=== PATIENT | female | born 1960 | race Caucasian/White ===

== ENCOUNTER 2018-02-04 08:23 | Emergency (ER) | payer BC ==
--- NOTE | 2018-02-04 09:20 | ED ---
HPI Chest Pain - HPI Summary HPI Summary: This is dianne Islas documenting for attending Dr. Marty Mccormick MD. This patient is a 57 year old F presenting to [facility] with a chief complaint of intermittent, tight CP radiating to her back since the last few days. The patient rates the pain 3/10 in severity. Symptoms alleviated by baby aspirin. Patient reports nausea and LE edema. Patient denies SOB and difficulty swallowing. Pt reports that no specific action makes her symptoms start. Last night the pt took 2 Prilosec and several glasses of water. Pt wanted to wait through the night to see if symptoms persisted before coming to the ED. Pt was driving for a long time yesterday and put her feet up for 30 minutes before bed. PMHX GERD and HTN (controlled). No SHX tobacco use. FHx CVA, SI, and EtOH abuse. - History of Current Complaint Chief Complaint: EDChestWallPain Time Seen by Provider: 02/04/18 08:38 Hx Obtained From: Patient Onset/Duration: Started Days Ago Timing: Intermittent Initial Severity: Moderate Current Severity: Mild Pain Intensity: 3 Pain Scale Used: 0-10 Numeric Chest Pain Location: Diffuse Chest Pain Radiates: Yes Chest Pain Radiates To:: Back Character: Tightness Alleviating Factor(s): Other: - baby aspirin Associated Signs and Symptoms: Positive: Chest Pain, Nausea, Edema - LE. Negative: Shortness of Breath - Allergy/Home Medications Allergies/Adverse Reactions: Allergies Allergy/AdvReac Type Severity Reaction Status Date / Time cefazolin [From [facility]] Allergy Dry Eyes Verified 02/04/18 08:32 Home Medications: Home Medications Atenolol 25 mg PO BEDTIME 02/04/18 [History Confirmed 02/04/18] Omeprazole CAP* [Prilosec CAP* 20 MG] 20 mg PO BEDTIME 02/04/18 [History Confirmed 02/04/18] Ubidecarenone/Vitamin E [Co Q-10 50 mg Softgel] 2 each PO DAILY 02/04/18 [ History Confirmed 02/04/18] PMH/Surg Hx/FS Hx/Imm Hx Cardiovascular History: Reports: Hx Hypertension GI History: Reports: Hx Gastroesophageal Reflux Disease - Immunization History Immunizations Up to Date: Yes Infectious Disease History: No Infectious Disease History: Denies: Traveled Outside the [place] in Last 30 Days - Family History Known Family History: Positive: Other - EtOH abuse, SI, CVA - Social History Alcohol Use: Occasionally Alcohol Amount: 2-3 glasses wine/week Substance Use Type: Reports: None Smoking Status (MU): Never Smoked Tobacco Review of Systems Negative: Sore Throat Positive: Chest Pain Negative: Shortness Of Breath Positive: Nausea Positive: Edema - LE All Other Systems Reviewed And Are Negative: Yes Physical Exam - Summary Physical Exam Summary: Appearance: The patient is well-nourished in no acute distress and in no acute pain. Skin: The skin is warm and dry and skin color reflects adequate perfusion. HEENT: The head is normocephalic and atraumatic. The pupils are equal and reactive. The conjunctivae are clear and without drainage. Nares are patent and without drainage. Mouth reveals moist mucous membranes and the throat is without erythema and exudate. The external ears are intact. The ear canals are patent and without drainage. The tympanic membranes are intact. Neck: The neck is supple with full range of motion and non-tender. There are no carotid bruits. There is no neck vein distension. Respiratory: Chest is non-tender. Lungs are clear to auscultation and breath sounds are symmetrical and equal. Cardiovascular: Heart is regular rate and rhythm. There is no murmur or rub auscultated. Pulses are symmetrical and equal. Abdomen: The abdomen is soft and non-tender. There are normal bowel sounds heard in all four quadrants and there is no organomegaly palpated. Musculoskeletal: There is no back tenderness noted. Extremities are non-tender with full range of motion. There is good capillary refill. There is no calf tenderness elicited. Neurological: Patient is alert and oriented to person, place and time. The patient has symmetrical motor strength in all four extremities. Cranial nerves are grossly intact. Deep tendon reflexes are symmetrical and equal in all four extremities. Psychiatric: The patient has an appropriate affect and does not exhibit any anxiety or depression. Triage Information Reviewed: Yes Vital Signs On Initial Exam: Initial Vitals Temp Pulse Resp BP Pulse Ox 97.4 F 52 16 124/71 100 02/04/18 08:29 02/04/18 08:29 02/04/18 08:29 02/04/18 08:29 02/04/18 08:29 Vital Signs Reviewed: Yes Diagnostics - Vital Signs Vital Signs Temp Pulse Resp BP Pulse Ox 02/04/18 08:29 97.4 F 52 16 124/71 100 - Laboratory Result Diagrams: 02/04/18 09:15 02/04/18 09:15 Lab Statement: Any lab studies that have been ordered have been reviewed, and results considered in the medical decision making process. - Radiology CXR Radiology Interpretation Completed By: Radiologist - No radiographic evidence of acute cardiopulmonary disease. ED Physician reviewed this report - EKG 8:36 Cardiac Rate: Bradycardia EKG Rhythm: Sinus Bradycardia - 54 bpm Ectopy: None Chest Pain Course/Dx - Diagnoses Provider Diagnoses: Chest pain Discharge - Sign-Out/Discharge Documenting (check all that apply): Patient Departure - Discharge - Discharge Plan Condition: Stable Disposition: HOME Patient Education Materials: Chest Pain (ED) Referrals: Anshu DUNCAN,Clive Valle [Medical Doctor] - 3 Days Additional Instructions: RETURN TO THE EMERGENCY DEPARTMENT FOR CHANGING OR WORSENING SYMPTOMS Follow up with your doctor within 3 days
[2018-02-04 09:28] LABS: ABS Basophils 0.1 10^3/ul (0-0.2); ABS Eosinophils 0.1 10^3/ul (0-0.6); ABS Lymphocytes 2.8 10^3/ul (1.0-4.8); ABS Monocytes 0.6 10^3/ul (0-0.8); ABS Nucleated RBC 0 10^3/ul; Eosinophil % 1.8 % (0-6); Hematocrit 42 % (35-47); Hemoglobin 14.9 g/dl (12.0-16.0); Lymphocyte % 42.4 % (25-47); Mean Corpuscular HGB Conc 35 g/dl (31-36); Mean Corpuscular Hemoglobin 32 pg (27-31); Mean Corpuscular Volume 91 fL (80-97); Mean Platelet Volume 9.1 um3 (7.4-10.4); Nucleated Red Blood Cells % 0.3; Platelet Count 224 10^3/ul (150-450); Red Blood Count 4.61 10^6/ul (4.00-5.40); Red Cell Distribution Width 13 % (10.5-15); White Blood Count 6.6 10^3/ul (3.5-10.8)
--- NOTE | 2018-02-04 09:28 | RAD ---
INDICATION: Chest pain COMPARISON: None TECHNIQUE: PA and lateral views of the chest were obtained. FINDINGS: The heart and mediastinum are normal in size and contour. The lungs are grossly clear. There is no evidence of large pleural effusion. Visualized bones are normal for the patient's age. There is no radiographic evidence of free air beneath the diaphragm IMPRESSION: No radiographic evidence of acute cardiopulmonary disease.
[2018-02-04 09:54] LABS: EGFR Non-African American 69.4 (>60)
[2018-02-04 12:07] VITALS: BP 118/68
== END 2018-02-04 12:07 | disposition home or self-care (01) ==
LOC: ED 08:23
DX: R07.89 Other chest pain (principal); R11.0 Nausea; R60.0 Localized edema; R00.1 Bradycardia, unspecified; I10 Essential (primary) hypertension; K21.9 Gastro-esophageal reflux disease without esophagitis; Z88.1 Allergy status to other antibiotic agents
CPT/HCPCS: 36415; 71046; 80053; 83605; 84484; 85025; 85379; 93005; 99283

== ENCOUNTER 2019-07-04 16:07 | Emergency (ER) | payer BC ==
--- NOTE | 2019-07-04 16:25 | ED ---
Palpitations / Dysrhythmia - HPI Summary HPI Summary: This pt is a 58 y/o female presenting to [facility] c/o palpitations today. 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 She notes associated symptoms of diaphoresis, dizziness, chest pressure, discomfort behind shoulder blades, weird sensation down left neck described as tightness. The CP/pressure, neck discomfort has resolved. Pt states she also felt "overwhelmed" and it was hard to breathe ( also improved). Denies nausea or vomiting. Pt reports feeling palpitations in the past, usually not lasting long and resolving on its own, last episode was "months ago." PMHx: HTN (for which she takes Atenolol at night), and recently diagnosed DM ( for which she takes Metformin). - History of Current Complaint Chief Complaint: EDDysrhythmPalp Time Seen by Provider: 07/04/19 16:19 Hx Obtained From: Patient Onset/Duration: Sudden Onset, Still Present Timing: Constant Severity Initially: Moderate Character: Fast, Irregular Aggravating: Nothing Alleviating: Nothing Associated Signs & Symptoms: Dizzy, Chest Pain, Shortness of Breath, Diaphoresis - Allergy/Home Medications Allergies/Adverse Reactions: Allergies Allergy/AdvReac Type Severity Reaction Status Date / Time cefazolin [From [facility]] Allergy Dry Eyes Verified 07/04/19 16:11 PMH/Surg Hx/FS Hx/Imm Hx Endocrine/Hematology History: Reports: Hx Diabetes Cardiovascular History: Reports: Hx Hypertension GI History: Reports: Hx Gastroesophageal Reflux Disease Infectious Disease History: No Infectious Disease History: Denies: Traveled Outside the [place] in Last 30 Days - Family History Known Family History: Positive: Other - EtOH abuse, SI, CVA Negative: Cardiac Disease - Social History Alcohol Use: Occasionally Alcohol Amount: 2-3 glasses wine/week Substance Use Type: Reports: None Smoking Status (MU): Never Smoked Tobacco Review of Systems Positive: Skin Diaphoresis. Negative: Fever Positive: Palpitations, Chest Pain Positive: Shortness Of Breath Negative: Vomiting, Nausea Musculoskeletal: Other - POSITIVE: left neck tightness, shoulder blade discomfort Neurological: Other - POSITIVE: dizziness All Other Systems Reviewed And Are Negative: Yes Physical Exam - Summary Physical Exam Summary: Constitutional: Well-developed, Well-nourished, Alert. (-) Distressed Skin: Warm, Dry HENT: Normocephalic; Atraumatic Eyes: Conjunctiva normal Neck: Musculoskeletal ROM normal neck. (-) JVD, (-) Stridor Cardio: Irregularly irregular rhythm and tachycardic rate, Heart sounds normal; Intact distal pulses; Radial pulses are 2+ and symmetric. (-) Murmur Pulmonary/Chest wall: Effort normal. (-) Respiratory distress, (-) Wheezes, (-) Rales Abd: Soft, (-) tenderness, (-) Distension, (-) Guarding, (-) Rebound Musculoskeletal: (-) Edema Lymph: (-) Cervical adenopathy Neuro: Alert, Oriented x3 Psych: Mood and affect Normal Triage Information Reviewed: Yes Vital Signs On Initial Exam: Initial Vitals Temp Pulse Resp BP Pulse Ox 96.7 F 97 16 114/87 97 07/04/19 16:09 07/04/19 16:09 07/04/19 16:09 07/04/19 16:09 07/04/19 16:09 Vital Signs Reviewed: Yes Procedures - Sedation Patient Received Moderate/Deep Sedation with Procedure: No Diagnostics - Vital Signs Vital Signs Temp Pulse Resp BP Pulse Ox 07/04/19 16:09 96.7 F 97 16 114/87 97 - Laboratory Result Diagrams: 07/04/19 16:36 07/04/19 16:36 Lab Statement: Any lab studies that have been ordered have been reviewed, and results considered in the medical decision making process. - EKG 16:15 Cardiac Rate: Tachycardia - at 151 bpm EKG Rhythm: Atrial Fibrillation Summary of EKG Findings: EKG at 1615 shows afib at 151 bpm. No prior hx of afib. 1821 Cardiac Rate: NL - at 73 bpm EKG Rhythm: Sinus Rhythm Summary of EKG Findings: EKG at 1821 shows sinus rhythm at a rate of 73 bpm. T wave inversion in lead III. Re-Evaluation - Re-Evaluation First Eval Re-Evaluation Time: 16:57 Comment: Heart rate in the 150s. Second Eval Re-Evaluation Time: 17:52 Change: Improved Comment: Pt is in sinus rhythm at a rate of 75 bpm. Third Eval Re-Evaluation Time: 18:29 Comment: Patient given eliquis and metoprolol 50 ER to go, explained followup plan Course/Dx - Course Course Of Treatment: 58-year-old female the history of hypertension presents with palpitations and lightheadedness found to be in A. fib with RVR. Patient given metoprolol 5 mg IV with heart rate down to the 120s from 150s. Given oral metoprolol. Check labs including electrolytes, TSH. Trop negative. Lungs CTAB, easy WOB on RA. CHADSVASC score 2 (female, HTN). Will start eliquis - Diagnoses Provider Diagnoses: Atrial fibrillation Discharge ED - Sign-Out/Discharge Documenting (check all that apply): Patient Departure - Discharge home - Discharge Plan Condition: Stable Disposition: HOME Prescriptions: Apixaban* [Eliquis*] 5 mg PO BID 30 Days #60 tab Metoprolol Succinate XL TAB* [Toprol XL TAB*] 50 mg PO DAILY 30 Days #30 tab.xl Patient Education Materials: A-fib (Atrial Fibrillation) (ED) Referrals: Grover Fink MD [Medical Doctor] - [facility] [Outside] Additional Instructions: You were seen in the emergency department for elevated heart rate. You have atrial fibrillation. Please take metoprolol daily. Please take eliquis twice a day. 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 It was a pleasure taking care of you today. - Billing Disposition and Condition Condition: STABLE Disposition: Home - Attestation Statements Document Initiated by James: Yes Documenting Scribe: Makenna Putnam Provider For Whom James is Documenting (Include Credential): Suzanne Montes MD Scribe Attestation: Makenna Francis, scribed for Suzanne Montes MD on 07/05/19 at 0658. Scribe Documentation Reviewed: Yes Provider Attestation: The documentation as recorded by the Makenna dean accurately reflects the service I personally performed and the decisions made by , Suzanne Montes MD Status of Scribe Document: Viewed
[2019-07-04] MEDS ORDERED: NS 0.9% 1000 ML** 1,000 ML IV ONE (16:29)
[2019-07-04] MEDS: Metoprolol Tartrate IV* 1 MG/ML 5 ML VIAL IV PRN ×3 (16:38→16:51)
[2019-07-04 16:52] LABS: ABS Basophils 0.1 10^3/ul (0-0.2); ABS Eosinophils 0.1 10^3/ul (0-0.6); ABS Lymphocytes 3.9 10^3/ul (1.0-4.8); ABS Monocytes 0.7 10^3/ul (0-0.8); ABS Neutrophils 4.3 10^3/ul (1.5-7.7); Hematocrit 43 % (35-47); Hemoglobin 14.9 g/dL (12.0-16.0); Mean Corpuscular HGB Conc 35 g/dL (31-36); Mean Corpuscular Hemoglobin 32 pg (27-31); Mean Corpuscular Volume 93 fL (80-97); Mean Platelet Volume 9.3 fL (7.4-10.4); Platelet Count 253 10^3/uL (150-450); Red Blood Count 4.62 10^6 /uL (3.70-4.87); Red Cell Distribution Width 13 % (10-15); White Blood Count 9.1 10^3/uL (3.5-10.8)
[2019-07-04] MEDS ORDERED: Metoprolol Succinate XL TAB* 25 MG PO ONE (16:57)
[2019-07-04] MEDS ORDERED: Diltiazem IV push/loading dose 5 MG/ML 5 ML vial (25 mg) IV SLOW PU ONE (16:58)
[2019-07-04] MEDS ORDERED: Metoprolol Tartrate TAB* 25 MG PO ONE (17:08)
[2019-07-04 17:15] LABS: Albumin 4.2 g/dL (3.2-5.2); Albumin/Globulin Ratio 1.5 (1-3); BUN/Creatinine Ratio 24.7 (8-20); Calcium 9.7 mg/dL (8.6-10.3); EGFR African American 79.4 (>60); EGFR Non-African American 65.6 (>60); Globulin 2.8 g/dL (2-4); Magnesium 1.8 mg/dL (1.9-2.7); Total Bilirubin 0.2 mg/dL (0.2-1.0)
[2019-07-04 17:19] LABS: Potassium 3.9 mmol/L (3.5-5.0)
[2019-07-04] MEDS ORDERED: Potassium Chlor TAB* 20 MEQ TAB.ER PO ONE (17:24)
[2019-07-04] MEDS ORDERED: Magnesium Sulfate 2 GM IV* 2 GM/50 ML BAG IVPB ONE (17:24)
[2019-07-04] MEDS ORDERED: Metoprolol Tartrate IV* 1 MG/ML 5 ML VIAL IV ONE (17:31)
[2019-07-04 17:32] LABS: TSH (Thyroid Stimulating Horm) 0.8 mcIU/mL (0.34-5.60)
[2019-07-04] MEDS ORDERED: Apixaban* 5 MG TAB PO ONE (18:01)
[2019-07-04 19:12] VITALS: BP 117/73
== END 2019-07-04 19:11 | disposition home or self-care (01) ==
LOC: ED 16:07
DX: I48.91 Unspecified atrial fibrillation (principal); E11.9 Type 2 diabetes mellitus without complications; I10 Essential (primary) hypertension; K21.9 Gastro-esophageal reflux disease without esophagitis; Z79.84 Long term (current) use of oral hypoglycemic drugs; Z79.899 Other long term (current) drug therapy; Z88.1 Allergy status to other antibiotic agents
CPT/HCPCS: 36415; 80053; 83735; 83880; 84443; 84484; 85025; 93005; 96365; 96375; 96376; 99283; A9270-GY; J3475; J3490

== ENCOUNTER 2019-09-15 14:05 | Emergency (ER) | payer BC ==
--- NOTE | 2019-09-15 14:40 | ED ---
Headache - HPI Summary HPI Summary: Patient is a 58 y/o F presenting to the ED for a chief complaint of headache that occurred after a fall on 09/14/19. Patient states she was throwing a Frisbee for her dog when she was fell, landing on her chest and hitting her head. Immediately after the fall, patient had a headache that is described as an aching sensation. Patient took 1000 mg of Tylenol for the headache after the fall, and later took an additional 500 mg of Tylenol before taking a nap. Currently, she has a headache in the left temporal region that is improved from the headache on 09/14/19. Patient denies any ecchymosis to the chest, neck pain , weakness, or dizziness. PMHx is significant for atrial fibrillation for which she takes Eliquis. Dr. Brasher in [place], [place] is her PCP. - History Of Current Complaint Chief Complaint: EDHeadInjury Stated Complaint: FELL YESTERDAY/ON BLOOD THINNER PER PT Time Seen by Provider: 09/15/19 14:32 Hx Obtained From: Patient Onset/Duration: Sudden Onset, Started hours ago Initially Headache Was: Moderate Currently Pain Is: Moderate Timing: Intermittent, Lasting: Character: Typical Headache - Aching Location of Headache: Temporal Aggravating Factor: Nothing Allevating Factors: Nothing - Allergies/Home Medications Allergies/Adverse Reactions: Allergies Allergy/AdvReac Type Severity Reaction Status Date / Time cefazolin [From [facility]] Allergy Dry Eyes Verified 09/15/19 14:17 Home Medications: Home Medications Omeprazole CAP (NF) [Prilosec CAP* 20 MG] 20 mg PO BEDTIME 02/04/18 [History Confirmed 09/15/19] Apixaban* [Eliquis*] 5 mg PO BID 30 Days #60 tab 07/04/19 [Rx Confirmed 09/15/19 ] Metoprolol Succinate XL TAB* [Toprol XL TAB*] 50 mg PO DAILY 30 Days #30 tab.xl 07/04/19 [Rx Confirmed 09/15/19] Escitalopram * [Lexapro 5 mg (NF)] 5 mg PO DAILY 09/15/19 [History Confirmed 03/28] Magnesium Oxide TAB* [MagOx 400 TAB*] 400 mg PO DAILY 09/15/19 [History Confirmed 09/15/19] Rosuvastatin (NF) [Crestor (NF)] 5 mg PO DAILY 09/15/19 [History Confirmed 09/14] metFORMIN* [Glucophage 500 MG TAB *] 500 mg PO DAILY 09/15/19 [History Confirmed 09/15/19] PMH/Surg Hx/FS Hx/Imm Hx Previously Healthy: Yes Endocrine/Hematology History: Reports: Hx Anticoagulant Therapy - Eliquis, Hx Diabetes Cardiovascular History: Reports: Hx Atrial Fibrillation - On Eliquis, Hx Hypertension GI History: Reports: Hx Gastroesophageal Reflux Disease Sensory History: Denies: Hx Legally Blind, Hx Deafness Opthamlomology History: Denies: Hx Legally Blind EENT History: Denies: Hx Deafness - Surgical History Surgical History: None Surgery Procedure, Year, and Place: None Infectious Disease History: No Infectious Disease History: Denies: Traveled Outside the [place] in Last 30 Days - Family History Known Family History: Positive: Other - EtOH abuse, SI, CVA Negative: Cardiac Disease - Social History Occupation: Employed Full-time Lives: With Family Alcohol Use: Occasionally Alcohol Amount: 2-3 glasses wine/week Hx Substance Use: No Substance Use Type: Reports: None Hx Tobacco Use: No Smoking Status (MU): Never Smoked Tobacco Review of Systems Negative: Myalgia - Negative neck pain Negative: Bruising - Chest Neurological/Mental Status: Other - Negative dizziness Positive: Headache. Negative: Weakness All Other Systems Reviewed And Are Negative: Yes Physical Exam - Summary Physical Exam Summary: Appearance: The patient is well-nourished in no acute distress and in no acute pain. Skin: The skin is warm and dry, and skin color reflects adequate perfusion. HEENT: The head is normocephalic and atraumatic. The pupils are equal and reactive. The conjunctivae are clear and without drainage. Nares are patent and without drainage. Mouth reveals moist mucous membranes, and the throat is without erythema and exudate. The external ears are intact. The ear canals are patent and without drainage. The tympanic membranes are intact. Neck: The neck is supple with full range of motion and non-tender. There are no carotid bruits. There is no neck vein distension. Respiratory: Chest is non-tender. Lungs are clear to auscultation and breath sounds are symmetrical and equal. Cardiovascular: Heart is regular rate and rhythm. There is no murmur or rub auscultated. There is no peripheral edema and pulses are symmetrical and equal. Abdomen: The abdomen is soft and non-tender. There are normal bowel sounds heard in all four quadrants and there is no organomegaly palpated. Musculoskeletal: There is no back tenderness noted. Extremities are non-tender with full range of motion. There is good capillary refill. There is no peripheral edema or calf tenderness elicited. Mid left parasternal tenderness. Neurological: Patient is alert and oriented to person, place and time. The patient has symmetrical motor strength in all four extremities. Cranial nerves are grossly intact. Deep tendon reflexes are symmetrical and equal in all four extremities. Psychiatric: The patient has an appropriate affect and does not exhibit any anxiety or depression. Triage Information Reviewed: Yes Vital Signs On Initial Exam: Initial Vitals Temp Pulse Resp BP Pulse Ox 98.3 F 73 16 139/69 97 09/15/19 14:14 09/15/19 14:14 09/15/19 14:14 09/15/19 14:14 09/15/19 14:14 Vital Signs Reviewed: Yes - [place] Coma Scale Best Eye Response: 4 - Spontaneous Best Motor Response: 6 - Obeys Commands Best Verbal Response: 5 - Oriented Coma Scale Total: 15 Procedures - Sedation Patient Received Moderate/Deep Sedation with Procedure: No Diagnostics - Vital Signs Vital Signs Temp Pulse Resp BP Pulse Ox 09/15/19 14:27 75 96 09/15/19 14:26 73 131/77 94 09/15/19 14:14 98.3 F 73 16 139/69 97 - Laboratory Lab Statement: Any lab studies that have been ordered have been reviewed, and results considered in the medical decision making process. - CT Brain CT CT Interpretation Completed By: Radiologist Summary of CT Findings: Brain CT IMPRESSION: NO ACUTE INTRACRANIAL PATHOLOGY. Reviewed by Dr. Mccormick. Headache Course/Dx - Course Course Of Treatment: Because of her anticoagulants and continued headache a CT scan was obtained which was negative for any acute bleed. - Diagnoses Provider Diagnoses: Head injury Discharge ED - Sign-Out/Discharge Documenting (check all that apply): Patient Departure - Discharge - Discharge Plan Condition: Stable Disposition: HOME Patient Education Materials: Head Injury (ED) Referrals: [facility] [Outside] Additional Instructions: RETURN TO THE EMERGENCY DEPARTMENT FOR CHANGING OR WORSENING SYMPTOMS. Follow up with your primary care physician in 2-3 days. - Billing Disposition and Condition Condition: STABLE Disposition: Home - Attestation Statements Document Initiated by Scribe: Yes Documenting Scribe: Silvia Duke Provider For Whom Scribe is Documenting (Include Credential): Marty Mccormick MD Scribe Attestation: Silvia Francis, scribed for Marty Mccormick MD on 09/15/19 at 2132. Scribe Documentation Reviewed: Yes Provider Attestation: The documentation as recorded by the Silvia dean accurately reflects the service I personally performed and the decisions made by meMarty MD Status of Scribe Document: Viewed
[2019-09-15 16:49] VITALS: BP 125/76
== END 2019-09-15 16:46 | disposition home or self-care (01) ==
LOC: ED 14:05
DX: S09.90XA Unspecified injury of head, initial encounter (principal); W18.30XA Fall on same level, unspecified, initial encounter; Y93.89 Activity, other specified; Y92.096 Garden or yard of other non-institutional residence as the place of occurrence of the external cause; I48.91 Unspecified atrial fibrillation; Z79.01 Long term (current) use of anticoagulants; E11.9 Type 2 diabetes mellitus without complications; Z79.84 Long term (current) use of oral hypoglycemic drugs; I10 Essential (primary) hypertension; K21.9 Gastro-esophageal reflux disease without esophagitis; Z79.899 Other long term (current) drug therapy; Z88.1 Allergy status to other antibiotic agents
CPT/HCPCS: 70450; 99283